=== PATIENT | male | born 1975 | race Asian ===

== ENCOUNTER → 2020-04-01 | Outpatient (CLI) | payer OTHER ==
[~2020-04-01] VITALS: Ht 170.2 cm; Wt 85.3 kg
[~2020-04-01] MED LIST: ANUSOL-HC30 GM TOP
--- NOTE | 2020-04-03 10:10 | P ---
[facility] [place] [address] PROCEDURE REPORT Name: THOM LOVE Room #: REG [facility].#: [id number] Admission: 04/01/20 Attend Phys: Jorge Luis Buck Discharge: Date of : 73 Report #: [id number] THIS REPORT FOR: cc: Shai Antonio MD, Rene P. MD McElhinney, Christian C. MD ~ CC: Jorge Luis Antonio MD DATE OF SERVICE: 04/01/2020 PROCEDURE PERFORMED: Colonoscopy. HISTORY OF PRESENT ILLNESS: The patient is a 44-year-old male who reports intermittent bright red blood per rectum and anal pain, mild constipation symptoms, improved somewhat with fiber and stool softeners. He has been taking ____ Proctosol with some benefit. No previous history of endoscopy, no family history of colon cancer or inflammatory bowel disease. DESCRIPTION OF PROCEDURE: The risks and benefits of the procedure were explained to the patient, those risks including but not limited to bleeding, perforation and the risk of sedation. He understood these risks and gave informed consent. Sedation was given using propofol per anesthesia. Next, a digital rectal exam was initially performed, which was normal. Next, using a standard Olympus colonoscope, the scope was placed in the patient's anus and advanced under direct vision to the cecum. The overall prep was excellent. The cecum and ileocecal valve were normal in appearance. Ascending, transverse, descending and sigmoid colon were normal. The rectal mucosa was normal. On retroflexion, very small internal hemorrhoids were noted, nonbleeding. Close examination of the anal canal showed 2 anal fissures. No active bleeding. A tiny external hemorrhoid also noted. The scope was then withdrawn and the procedure terminated. The patient tolerated the procedure well. IMPRESSION: 1. Small internal and external hemorrhoids. 2. Two anal fissures, likely source of recent anal pain and bright red blood per rectum. 3. Otherwise, normal colonoscopy. RECOMMENDATIONS: 1. Continue fiber or MiraLax on a daily basis. 2. We will start Analpram b.i.d. for 1-2 weeks and then p.r.n. 3. Repeat colonoscopy in [address] [address] PROCEDURE REPORT Name: THOM LOVE Room #: REG [facility] Víctor#: [id number] Admission: 04/01/20 Attend Phys: Jorge Luis Buck Discharge: Date of : 73 Report #: [id number] Thank you for allowing me to participate in his care. <ELECTRONICALLY SIGNED> By: Jorge Luis William MD 04/03/20 [id number] [id number] Jorge Luis William MD /nt
== END | disposition home or self-care (01) ==
LOC: GI 06:53
PROVIDERS: ATTEND Specialist
DX: K62.5 Hemorrhage of anus and rectum (principal); K60.2 Anal fissure, unspecified; K64.8 Other hemorrhoids; K64.4 Residual hemorrhoidal skin tags; K21.9 Gastro-esophageal reflux disease without esophagitis; J45.909 Unspecified asthma, uncomplicated; Z98.890 Other specified postprocedural states; Z79.899 Other long term (current) drug therapy; Z90.49 Acquired absence of other specified parts of digestive tract; Z11.59 Encounter for screening for other viral diseases
CPT/HCPCS: 62110; 62900

== ENCOUNTER → 2020-05-29 | Outpatient (CLI) | payer OTHER ==
[2020-05-29 08:46] LABS: ABSOLUTE NEUTROPHILS 3.1 thou/uL (1.4-8.2); BASOPHILS 0.8 % (0.0-2.0); EOSINOPHILS 3.7 % (0.0-3.0); HEMOGLOBIN 15.1 gm/dL (14.0-18.0); LYMPHOCYTES 25.9 % (24.0-44.0); MCH 29.4 pg (26.0-34.0); MCHC 34.3 g/dL (28.0-37.0); MCV 85.6 fL (80.0-100.0); MONOCYTES 10.9 % (1.0-8.0); PLATELET COUNT 286 thou/uL (150-400); POLYS 58.7 % (36.0-66.0); RBC 5.14 mil/uL (4.50-6.00); RDW 13.3 % (10.5-14.5); WBC 5.2 thou/uL (4.0-11.0)
[2020-05-29 09:16] LABS: ALBUMIN 4.1 g/dL (3.4-5.0); ANION GAP 9 mmol/L (7-16); BUN 15 mg/dL (7-18); CALCIUM 8.3 mg/dL (8.5-10.1); CHLORIDE 104 mmol/L (98-107); CHOLESTEROL 164 mg/dL (<200); CO2 29 mmol/L (21-32); GLUCOSE 94 mg/dL (74-106); HDL CHOLESTEROL 33 mg/dL (>40); LDL CHOLESTEROL 109 mg/dL (<100); SGOT 20 U/L (15-37); SGPT 38 U/L (30-65); SODIUM 142 mmol/L (136-145); TOTAL BILIRUBIN 0.5 mg/dL (0.2-1.0); TOTAL PROTEIN 7.7 g/dL (6.4-8.2); TRIGLYCERIDE 110 mg/dL (<150); VLDL 22 mg/dL (<40)
== END ==
LOC: LABMALL 07:58
PROVIDERS: ATTEND Family Medicine
DX: Z12.5 Encounter for screening for malignant neoplasm of prostate (principal); R53.83 Other fatigue; E78.00 Pure hypercholesterolemia, unspecified

== ENCOUNTER → 2020-06-15 | Outpatient (CLI) | payer OTHER ==
[2020-06-15 09:44] LABS: CREATININE 0.9 mg/dL (0.7-1.3)
== END ==
LOC: LAB 08:58
PROVIDERS: ATTEND Family Medicine
DX: E83.51 Hypocalcemia (principal)